=== PATIENT | male | born 1970 | race Caucasian/White ===

== ENCOUNTER 2017-01-17 00:51 | Day surgery (SDC) | payer OTHER ==
[2017-01-17] VITALS (9 sets, daily range): BP systolic 12–144; BP diastolic 62–75; PULSE 68–93; RESP 12–16; O2SAT 99–100
[~2017-01-17] VITALS: Ht 175.3 cm; Wt 72.0 kg
[~2017-01-17 00:51] MED LIST: ASPI-973 PO; LISI-571 PO; METO25TA99 PO
[2017-01-17 07:00] LABS: Mean Corpuscular Hemoglobin 32.8 pg (27.0-35.0); Mean Corpuscular Volume 96.1 fL (81-100)
[2017-01-17] MEDS ORDERED: Heparin 1,000 Units/500 mL NS Premix IV ONE (07:35)
[2017-01-17] MEDS ORDERED: Heparin 5,000 Units/500 mL NS Premix IV ONE (07:35)
[2017-01-17] MEDS ORDERED: 0.9% Sodium Chloride 1,000 ML ONE (07:43)
[2017-01-17] MEDS ORDERED: fentaNYL-PF 50 mCg/mL 2 mL Inj ONE (08:13)
[2017-01-17] MEDS ORDERED: 0.9% Sodium Chloride 250 ML IV PRN (08:46)
[2017-01-17] MEDS ORDERED: 0.9% Sodium Chloride 1,000 ML IV PRN (08:46)
[2017-01-17] MEDS ORDERED: Atropine 1 mg/10 mL (Code) Syringe IVPUSH PRN (08:50)
[2017-01-17] MEDS ORDERED: HYDROcodone-APAP 5-325 mg Tablet PO PRN (08:50)
[2017-01-17] MEDS ORDERED: Ondansetron 2 mg/mL 2 mL Inj IVPUSH PRN (08:50)
--- NOTE | 2017-01-17 11:33 | NUR ---
Discharge instructions reviewed with patient. He was instructed this morning prior to admission that he would need someone to drive him home. He had stepped out to his car to retireve his phone and informed me that he had called someone. On discharge he assures me he has called his friend. Right groin without hematoma or bleeding, pt has been out of bed x 30 minutes.
--- NOTE | 2017-01-19 18:39 | CS94 ---
[address] [address] DIAGNOSTIC CARDIAC CATHETERIZATION PATIENT: MYLENE CLEMENTS : 1970 MR#: [id number] ADMIT: 01/17/2017 JOB ID: [id number] SERVICE DATE: 01/17/2017 INDICATION: New-onset heart failure. 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 CONSENT: The patient was explained the risks, benefits, and alternatives of the procedure. Informed signed consent was obtained and placed in the chart. DESCRIPTION OF PROCEDURE: The patient was brought to the cath laboratory and placed on the cath table. Both groins were prepped and draped in the usual sterile manner. Lidocaine 1% was infiltrated in the right groin area to achieve topical anesthesia. Using a modified Seldinger technique, a 6-Haitian arterial sheath was placed in the right femoral artery without any difficulty. FR4 catheter was advanced over the guidewire and placed in the ostium of the left main coronary artery and multiple views of the left coronary artery were obtained in multiple projections. FR4 catheter was used to engage the right coronary artery. Multiple views of the right coronary artery were obtained in multiple projections. A separate ostia of the acute marginal branch was identified with multiple views obtained as well. A pigtail catheter was advanced over the guidewire and placed in the left ventricle and left ventricular hemodynamics were obtained. Subsequently, left ventricular cineangiography was performed and the LV function was assessed. Left ventricular hemodynamics was obtained. A pullback maneuver was performed to assess for any gradient. The arterial sheath was removed successfully. Hemostasis was achieved. The patient was taken out of the cath laboratory in stable condition. The fluoro time was 3.1 minutes and total contrast used 95 cc. HEMODYNAMICS: The left ventricular end-diastolic pressure is 16 mmHg. The LV pressure was measured at 136/5. There was no left ventricular aortic gradient recorded. CORONARY ANGIOGRAPHY: The left main coronary artery is a moderate-sized vessel which has a long tubular course. It bifurcates into left anterior descending artery and left circumflex coronary artery. There is a small tubular ramus intermedius noted as well. The left anterior descending artery has mild luminal irregularities. The distal LAD is free of any significant disease. It wraps around the LV apex. The diagonal branch 1 demonstrates no significant disease. Diagonal branch 2 has a mild tubular stenosis in the proximal segment. The mid LAD is free of any significant disease. The diagonal 3 is again free of any significant disease. The left circumflex coronary artery has a mild tubular stenosis of 30% in the ostial and proximal segment. Just before the origin of the first obtuse marginal branch, there is tubular stenosis of 40% to 50%. The distal left circumflex traverses into the posterior AV groove. The right coronary artery has two separate ostia for the right coronary artery and acute marginal branch. The right coronary artery has conus and right atrial branch. It has a high bifurcation. The mid RCA demonstrates 20-30% stenosis. The PDA branches demonstrate no significant disease. The posterolateral branch is a small sized vessel. The acute marginal branch gives off right atrial branch and is free of any significant disease. The conus branch is noted arising from the right coronary artery and traversing towards the SA node. The left ventricular systolic function was assessed using left ventricular cineangiography. The cardiac silhouette demonstrates mild calcification. The overall left ventricular systolic function is 45% to 50% with diffuse global hypokinesis. No significant MR noted. IMPRESSION: 1. Mild three-vessel coronary artery disease. 2. Borderline left ventricular systolic function estimated at 45% to 50%. 3. Separate ostia of the acute marginal branch (coronary anomaly).
== END 2017-01-17 23:59 | disposition home or self-care (01) ==
LOC: SOUO 00:51 → EDSTATUS 12:42 → SOUO 23:59
PROVIDERS: ATTEND Internal Medicine Cardiovascular Disease
DX: I50.9 Heart failure, unspecified (principal); I25.10 Atherosclerotic heart disease of native coronary artery without angina pectoris; I42.9 Cardiomyopathy, unspecified; Q24.5 Malformation of coronary vessels; Z79.82 Long term (current) use of aspirin; I10 Essential (primary) hypertension; Z85.71 Personal history of Hodgkin lymphoma; Z92.21 Personal history of antineoplastic chemotherapy; Z92.3 Personal history of irradiation; I45.10 Unspecified right bundle-branch block; E78.2 Mixed hyperlipidemia
CPT/HCPCS: 36415; 80048; 85027; 93458; 99152; 99153; C1760; C1769; J1644; J2250; J3010; Q9967